=== PATIENT | female | born 1970 | race African-American/Black ===

== ENCOUNTER 2019-09-03 21:59 | Emergency (ER) | payer MEDICAID, OTHER ==
[~2019-09-03] VITALS: Ht 172.7 cm; Wt 62.1 kg
[~2019-09-03 21:59] MED LIST: ATIVAN0.5 MG ORAL; OMEPRAZOLE20 M2 ORAL; PEPCID40 MG PO; ZOFRAN ODT4 MG ORAL
[2019-09-03 22:10] VITALS: BP 96/78
[2019-09-03] MEDS ORDERED: Metoclopramide 10mg/2ml Inj IVP ONE (22:15)
[2019-09-03] MEDS ORDERED: HYDROmorphone 1mg/ml Carpuject IVP ONE (22:15)
[2019-09-03] MEDS ORDERED: Omnipaque-300 100ml vial INJ PRN (22:15)
[2019-09-03] MEDS ORDERED: DiphenhydrAMINE 25mg Tab ORAL ONE (22:15)
[2019-09-03 22:59] LABS: BASOPHILS % (AUTO) 0.9 % (0.0-2.0); HEMATOCRIT 46.5 % (37.0-47.0); HEMOGLOBIN 14.6 G/DL (12.0-16.0); LYMPHOCYTES % (AUTO) 19.1 % (20.0-45.0); MEAN CORPUSCULAR VOLUME 98 FL (80-99); MONOCYTES % (AUTO) 5.1 % (1.0-10.0); NEUTROPHILS % (AUTO) 74.9 % (45.0-75.0); PLATELET COUNT 281 K/UL (150-450); RED BLOOD COUNT 4.73 M/UL (4.20-5.40); RED CELL DISTRIBUTION WIDTH 16.2 % (11.6-14.8)
[2019-09-03 23:11] LABS: INR 0.9 (0.9-1.1)
[2019-09-03 23:19] LABS: ALANINE AMINOTRANSFERASE 25 U/L (12-78); ALBUMIN 4.3 G/DL (3.4-5.0); ALKALINE PHOSPHATASE 96 U/L (46-116); ANION GAP 17 mmol/L (5-15); ASPARTATE AMINO TRANSFERASE 68 U/L (15-37); BILIRUBIN,TOTAL 0.9 MG/DL (0.2-1.0); BLOOD UREA NITROGEN 18 mg/dL (7-18); CARBON DIOXIDE 27 MMOL/L (21-32); CHLORIDE 100 MMOL/L (98-107); CREATININE 1.3 MG/DL (0.55-1.30); POTASSIUM 4.5 MMOL/L (3.5-5.1); SODIUM 144 MMOL/L (136-145)
--- NOTE | 2019-09-03 23:21 | Emergency Room Report ---
History of Present Illness General Chief Complaint: Abdominal Pain Source: Patient, EMS Present Illness HPI 49-year-old female history of gastritis presents with abdominal pain x3 days constant patient reports another bout of gastritis patient was seen at previous hospitals, states that she needs hydromorphone to help her pain, severity is severe, constant she denies any chest pain shortness of breath she denies any diarrhea she reports some nausea patient presents for evaluation. She describes the pain as generalized sharp severe Allergies: Coded Allergies: KETOROLAC (Unverified Allergy, Unknown, 05/25/14) PENICILLINS (Unverified Allergy, Unknown, 05/25/14) Patient History Past Medical History: see triage record Last Menstrual Period: 08/19/2019 Reviewed Nursing Documentation: PMH: Agreed; PSxH: Agreed Nursing Documentation-PMH Hx Cardiac Problems: Yes - ANGINA Hx Hypertension: Yes Hx Asthma: Yes Hx Gastrointestinal Problems: Yes - GASTRITIS, DIVERTICULITIS, SICKLE CELL Review of Systems All Other Systems: negative except mentioned in HPI Physical Exam Vital Signs Date Time Temp Pulse Resp B/P (MAP) Pulse Ox O2 Delivery O2 Flow Rate FiO2 09/03/19 22:03 98.4 115 22 96/78 (84) 97 Room Air Sp02 EP Interpretation: reviewed, normal General Appearance: well appearing, alert, mild distress Head: normocephalic, atraumatic Eyes: bilateral eye PERRL, bilateral eye EOMI ENT: uvula midline, moist mucus membranes Neck: supple, thyroid normal, supple/symm/no masses Respiratory: lungs clear, no respiratory distress, no retraction, no accessory muscle use Cardiovascular #1: normal peripheral pulses, regular rate, rhythm, no edema, no gallop, no murmur Gastrointestinal: non tender, soft, no guarding, no rebound Musculoskeletal: normal inspection Neurologic: alert, oriented x3 Psychiatric: anxious Skin: no rash, warm/dry Medical Decision Making Diagnostic Impression: Primary Impression: Abdominal pain Qualified Codes: R10.84 - Generalized abdominal pain ER Course 49-year-old female presents with diffuse abdominal pain patient is a frequent flyer receiving pain medications patient is requesting strong pain medications Patient's pain resolved with hydromorphone and famotidine abdomen soft nontender no rebound no guarding There is a possible colitis on CT scan however it is incongruent with her current exam low suspicion for acute intra-abdominal pathology Reevaluation 1:49 AM patient is sleeping comfortably in bed will provide patient with a short-term prescription of pain medication cures report was run Disposition home with return precautions follow-up with PCP Laboratory Tests Test 09/03/19 22:45 White Blood Count 10.0 K/UL (4.8-10.8) Red Blood Count 4.73 M/UL (4.20-5.40) Hemoglobin 14.6 G/DL (12.0-16.0) Hematocrit 46.5 % (37.0-47.0) Mean Corpuscular Volume 98 FL (80-99) Mean Corpuscular Hemoglobin 31.0 PG (27.0-31.0) Mean Corpuscular Hemoglobin Concent 31.5 G/DL (32.0-36.0) L Red Cell Distribution Width 16.2 % (11.6-14.8) H Platelet Count 281 K/UL (150-450) Mean Platelet Volume 7.1 FL (6.5-10.1) Neutrophils (%) (Auto) 74.9 % (45.0-75.0) Lymphocytes (%) (Auto) 19.1 % (20.0-45.0) L Monocytes (%) (Auto) 5.1 % (1.0-10.0) Eosinophils (%) (Auto) 0.0 % (0.0-3.0) Basophils (%) (Auto) 0.9 % (0.0-2.0) Prothrombin Time 10.0 SEC (9.30-11.50) Prothrombin Time INR 0.9 (0.9-1.1) Activated Partial Thromboplast Time 24 SEC (23-33) Sodium Level 144 MMOL/L (136-145) Potassium Level 4.5 MMOL/L (3.5-5.1) Chloride Level 100 MMOL/L (98-107) Carbon Dioxide Level 27 MMOL/L (21-32) Anion Gap 17 mmol/L (5-15) H Blood Urea Nitrogen 18 mg/dL (7-18) Creatinine 1.3 MG/DL (0.55-1.30) Estimate Glomerular Filtration Rate 53.2 mL/min (>60) Glucose Level 119 MG/DL (74-106) H Calcium Level 10.0 MG/DL (8.5-10.1) Total Bilirubin 0.9 MG/DL (0.2-1.0) Aspartate Amino Transferase (AST) 68 U/L (15-37) H Alanine Aminotransferase (ALT) 25 U/L (12-78) Alkaline Phosphatase 96 U/L (46-116) Troponin I 0.022 ng/mL (0.000-0.056) Total Protein 8.8 G/DL (6.4-8.2) H Albumin 4.3 G/DL (3.4-5.0) Globulin 4.5 g/dL Albumin/Globulin Ratio 1.0 (1.0-2.7) Lipase 84 U/L (73-393) Human Chorionic Gonadotropin, Quant 1 mIU/mL (1-6) EKG Diagnostic Results EKG Time: 22:19 EP Interpretation: Sinus tachycardia, rate 102, QTc 487, normal axis, no acute ST elevations Rhythm Strip Diag. Results Rhythm Strip Time: 23:21 EP Interpretation: yes Rate: 96 Rhythm: NSR, no PVC's, no ectopy CT/MRI/US Diagnostic Results CT/MRI/US Diagnostic Results : Impression Preliminary Findings Only See Final Report For Complete Findings CT ABDOMEN & PELVIS With Contrast: No prior exam. Clear lungs. Normal size of the heart. Ill-defined low-attenuation lesion within the left liver lobe measuring 2.2 x 2.0 cm, incompletely characterized. Normal bilateral kidneys, visualized spleen. Possible minimal stranding surrounding the pancreas, cannot exclude pancreatitis. Decompressed stomach. Unremarkable small bowel with fluid in the distal small bowel. Mild diverticulosis with no signs of diverticulitis. Normal appendix. Mild fullness of the colon, cannot exclude colitis. Unremarkable urinary bladder. Unremarkable uterus but no free fluid. Degenerative disease of the spine most severe at L5-S1. Impression: Possible colitis. Clinical correlation recommended. No bowel obstruction. No acute appendicitis. Mild diverticulosis with no signs of diverticulitis or Left liver lobe lesion, incompletely characterized and therefore indeterminate to benign versus malignant. Comparison to prior films recommended. If no prior films are made available, further characterization with CT of the abdomen, liver mass protocol recommended a nonacute setting. Radiologist: Kathleen Land MD Study ready at 01:14 and initial results transmitted at 01:44 Last Vital Signs Date Time Temp Pulse Resp B/P (MAP) Pulse Ox O2 Delivery O2 Flow Rate FiO2 09/03/19 22:10 115 22 Room Air 09/03/19 22:10 98.4 96/78 97 Disposition: HOME, SELF-CARE Condition: Stable Scripts Oxycodone HCl (Oxycodone HCl) 15 Mg Tablet 15 MG ORAL Q4H PRN for For Pain, #12 TAB 0 Refills Prov: Jose D Mcdermott MD 09/04/19 Referrals: [facility] (PCP) Patient Instructions: Abdominal Pain, Adult Additional Instructions: The patient was provided with discharge instructions, notified to follow-up with a primary care doctor and or specialist in the next 24-48 hours, and to return to the ED if they have worsening of their symptoms. Please note that this report is being documented using [employer] technology. This can lead to erroneous entry secondary to incorrect interpretation by the dictating instrument. Jose D Mcdermott MD Sep 03, 2019 23:21
--- NOTE | 2019-09-04 01:45 | Diagnostic Imaging Report ---
INDICATION: Abdominal pain TECHNIQUE: Continuous helical transaxial imaging of the abdomen and pelvis was obtained from the lung bases to the pubic symphysis during intravenous contrast administration. Coronal 2-D reformats were also obtained. Study obtained in a Siemens sensation [address] Automatic Exposure Control was utilized. Total Dose length Product (DLP): 182.[address] Dose Index Volume (CTDIvol): 3.9 mGy COMPARISON: None FINDINGS: Lungs: The visualized lung bases are clear. Liver: There is approximately 2 cm ill-defined hypodensity in the lateral segment of the left lobe of the liver. This requires further evaluation. Gallbladder/biliary system: No gallstones are identified. There is no evidence of intrahepatic or extrahepatic biliary ductal dilatation. Spleen: Unremarkable Pancreas: Unremarkable Kidneys/Bladder: No hydronephrosis identified. Both kidneys enhance symmetrically. The urinary bladder is unremarkable.. Adrenal glands: Unremarkable Aorta/IVC: Unremarkable Bowel: The colon is diffusely underdistended with slight prominence of the wall. This is questionable for colitis. Correlate clinically. There is no evidence of bowel obstruction. Peritoneum: There is no free fluid. There is a small ventral abdominal wall hernia above the umbilicus. This contains fat.. Bones: Degenerative disc disease at L5-S1 noted with vacuum phenomenon narrowing. IMPRESSION: Question of a colitis versus under distention of the colon. Consider further evaluation. 2 cm hypodensity in the left lobe of the liver requires further evaluation. Recommend contrast CT or ultrasound. Other incidental findings as above The study is significantly limited by the nonadministration of oral and IV contrast. [facility] has communicated the preliminary results to the Emergency Department. Their findings are largely concordant with this report. The CT scanner at [facility] is accredited by the [employer] and the scans are performed using dose optimization techniques as appropriate to a performed exam including Automatic Exposure control.
[2019-09-04] MEDS ORDERED: OXYCODONE IR15 MG ORAL (01:51)
[2019-09-04 02:15] VITALS: BP 96/78
== END 2019-09-04 02:15 | disposition home or self-care (01) ==
LOC: EDBD 21:59 → EMR 22:12
DX: R10.84 Generalized abdominal pain (principal); I10 Essential (primary) hypertension; Z88.0 Allergy status to penicillin; Z88.8 Allergy status to other drugs, medicaments and biological substances
CPT/HCPCS: 36415; 74177; 80053; 83690; 84484; 84702; 85025; 85610; 85730; 93005; 96361; 96374; 96375; J1170; J2765; J7030; Q9967; S0028; Z7502; 99284

== ENCOUNTER 2020-06-02 21:40 | Emergency (ER) | payer MEDICAID ==
[~2020-06-02] VITALS: Ht 149.9 cm; Wt 62.1 kg
[~2020-06-02 21:40] MED LIST changes: +OXYCODONE IR15 MG ORAL
[2020-06-02] MEDS ORDERED: Lidocaine 2% Visc 15ml soln ORAL ONE (22:15)
[2020-06-02] MEDS ORDERED: Dicyclomine HCl 10mg/5ml oral soln ORAL ONE (22:15)
[2020-06-02] MEDS ORDERED: HYDROmorphone 1mg/ml Carpuject IVP ONE ×2 (22:15→23:00)
[2020-06-02] MEDS ORDERED: Mylanta II UD 30ml ORAL ONE (22:15)
--- NOTE | 2020-06-02 22:17 | Emergency Room Report ---
History of Present Illness General Chief Complaint: Abdominal Pain Present Illness HPI 50-year-old female with history of sickle cell anemia and hydroxyurea here with epigastric abdominal pain. Patient says that over the past 72 hours she has been having worsening epigastric abdominal pain that is worse today. She started vomiting yesterday and reports one episode of coffee-ground emesis. However her vomit today did not show any signs of blood. Says she is also had some black stool. Pain is sharp in nature, located epigastric region, does not otherwise radiate. Reports 10 out of 10 in intensity. Says "I was taking hydrocodone but ran out." Denies headache, vision change, fevers, chills, chest pain, palpitations, shortness of breath, back pain, diarrhea, dysuria. Review of cures report shows that the patient was given a prescription for 90 oxycodone tablets 2 weeks ago. 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 Patient History Now: No Nursing Documentation-PMH Hx Cardiac Problems: Yes - ANGINA Hx Hypertension: Yes Hx Asthma: Yes Hx Gastrointestinal Problems: Yes - GASTRITIS, DIVERTICULITIS, SICKLE CELL Review of Systems All Other Systems: negative except mentioned in HPI Physical Exam Vital Signs Date Time Temp Pulse Resp B/P (MAP) Pulse Ox O2 Delivery O2 Flow Rate FiO2 06/02/20 21:48 99.1 88 26 148/88 (108) 88 Room Air Sp02 EP Interpretation: reviewed, normal General Appearance: alert, non-toxic, moderate distress Head: normocephalic, atraumatic Eyes: bilateral eye normal inspection, bilateral eye PERRL ENT: hearing grossly normal, normal pharynx, no angioedema, normal voice Neck: full range of motion, supple/symm/no masses Respiratory: chest non-tender, lungs clear, normal breath sounds, speaking full sentences Cardiovascular #1: regular rate, rhythm, no edema Cardiovascular #2: 2+ carotid (R), 2+ carotid (L), 2+ radial (R), 2+ radial (L), 2+ dorsalis pedis (R), 2+ dorsalis pedis (L) Gastrointestinal: normal bowel sounds, soft, non-distended, no guarding, no rebound, other - Epigastric tenderness on palpation. No rebound or guarding Rectal: deferred Genitourinary: normal inspection, no CVA tenderness Musculoskeletal: back normal, normal range of motion, gait/station normal, non- tender Neurologic: alert, motor strength/tone normal, sensory intact, responsive, speech normal Psychiatric: judgement/insight normal, memory normal, mood/affect normal, no suicidal/homicidal ideation Reflexes: 3+ bicep (R), 3+ bicep (L), 3+ tricep (R), 3+ tricep (L), 3+ knee (R), 3+ knee (L) Lymphatic: no adenopathy Medical Decision Making Diagnostic Impression: Primary Impression: Opiate dependence Additional Impressions: Abdominal pain Acute sickle cell crisis ER Course Laboratory Tests Laboratory Tests Test 06/02/20 22:00 06/03/20 00:00 White Blood Count 8.4 K/UL (4.8-10.8) Red Blood Count 4.75 M/UL (4.20-5.40) Hemoglobin 16.3 G/DL (12.0-16.0) H Hematocrit 50.1 % (37.0-47.0) H Mean Corpuscular Volume 106 FL (80-99) H Mean Corpuscular Hemoglobin 34.3 PG (27.0-31.0) H Mean Corpuscular Hemoglobin Concent 32.6 G/DL (32.0-36.0) Red Cell Distribution Width 15.8 % (11.6-14.8) H Platelet Count 169 K/UL (150-450) Mean Platelet Volume 8.3 FL (6.5-10.1) Neutrophils (%) (Auto) 84.5 % (45.0-75.0) H Lymphocytes (%) (Auto) 10.6 % (20.0-45.0) L Monocytes (%) (Auto) 4.1 % (1.0-10.0) Eosinophils (%) (Auto) 0.1 % (0.0-3.0) Basophils (%) (Auto) 0.7 % (0.0-2.0) Reticulocyte Count 0.6 % (0.5-2.0) Sodium Level 143 MMOL/L (136-145) Potassium Level 5.7 MMOL/L (3.5-5.1) H Chloride Level 106 MMOL/L (98-107) Carbon Dioxide Level 29 MMOL/L (21-32) Anion Gap 9 mmol/L (5-15) Blood Urea Nitrogen 13 mg/dL (7-18) Creatinine 0.9 MG/DL (0.55-1.30) Estimated Glomerular Filtration Rate > 60 mL/min (>60) Glucose Level 118 MG/DL (74-106) H Calcium Level 9.6 MG/DL (8.5-10.1) Total Bilirubin 0.9 MG/DL (0.2-1.0) Aspartate Amino Transferase (AST) 45 U/L (15-37) H Alanine Aminotransferase (ALT) 22 U/L (12-78) Alkaline Phosphatase 93 U/L (46-116) Total Protein 8.7 G/DL (6.4-8.2) H Albumin 4.3 G/DL (3.4-5.0) Globulin 4.4 g/dL Albumin/Globulin Ratio 1.0 (1.0-2.7) Lipase 60 U/L (73-393) L Urine Color Yellow Urine Appearance Clear Urine pH 5 (4.5-8.0) Urine Specific Stitzer 1.020 (1.005-1.035) Urine Protein 1+ (NEGATIVE) H Urine Glucose (UA) Negative (NEGATIVE) Urine Ketones 2+ (NEGATIVE) H Urine Blood 1+ (NEGATIVE) H Urine Nitrite Negative (NEGATIVE) Urine Bilirubin Negative (NEGATIVE) Urine Urobilinogen Normal MG/DL (0.0-1.0) Urine Leukocyte Esterase Negative (NEGATIVE) Urine RBC 0-2 /HPF (0 - 2) Urine WBC 0-2 /HPF (0 - 2) Urine Squamous Epithelial Cells Few /LPF (NONE/OCC) Urine Bacteria Few /HPF (NONE) Chest x-ray: No infiltrate/effusion. Mediastinum within normal limits. No consolidation. No free air under the diaphragm CT abd pel: IMPRESSION: 1. Mildly thickened large bowel loops throughout the abdomen. Correlate with colitis versus under distention. 2. Mild hiatal hernia. 3. Hemangioma in the left liver. 4. 1.3 cm exophytic lesion arising from the anterior uterus, likely subserosal fibroid. 50-year-old female with history of sickle cell anemia here with abdominal pain. Patient was screaming in pain when she arrived to the emergency department. She had moderate epigastric tenderness on palpation. She was given 2 g of Dilaudid, Benadryl, Ativan, IV fluids with good resolution of her pain. She was sleeping soundly after these medications were given. CT abdomen unremarkable. Chest x- ray was also normal. She was in no acute distress throughout the rest of her s kasey in the emergency department. Normal vital signs. CBC, CMP, troponin all unremarkable. She had a normal reticulocyte count. Review of patient's cures showed that she was given 90 oxycodone tablets approximately 2 weeks ago. She was told that she needs to follow-up with her pain specialist. Urinalysis unremarkable. Patient was given a prescription for short course of opiate pain medication. Discharged in stable condition. Last Vital Signs Date Time Temp Pulse Resp B/P (MAP) Pulse Ox O2 Delivery O2 Flow Rate FiO2 06/02/20 21:48 99.1 88 26 148/88 (108) 88 Room Air Scripts Hydrocodone Bit/Acetaminophen 5-325* (NORCO 5-325 TABLET*) 1 Each Tablet 1 TAB ORAL Q4H PRN for For Pain, #10 TAB Prov: Tito Saravia M.D. 06/03/20 Referrals: [facility] (PCP) Tito Saravia M.D. Jun 02, 2020 22:17
[2020-06-02 22:31] LABS: ANION GAP 9 mmol/L (5-15); BLOOD UREA NITROGEN 13 mg/dL (7-18); CALCIUM 9.6 MG/DL (8.5-10.1); CARBON DIOXIDE 29 MMOL/L (21-32); CHLORIDE 106 MMOL/L (98-107); CREATININE 0.9 MG/DL (0.55-1.30); POTASSIUM 5.7 MMOL/L (3.5-5.1); SODIUM 143 MMOL/L (136-145)
[2020-06-02 22:35] LABS: ALANINE AMINOTRANSFERASE 22 U/L (12-78); ALBUMIN 4.3 G/DL (3.4-5.0); ALKALINE PHOSPHATASE 93 U/L (46-116); ASPARTATE AMINO TRANSFERASE 45 U/L (15-37); BILIRUBIN,TOTAL 0.9 MG/DL (0.2-1.0)
[2020-06-02 22:41] LABS: BASOPHILS % (AUTO) 0.7 % (0.0-2.0); EOSINOPHILS % (AUTO) 0.1 % (0.0-3.0); HEMATOCRIT 50.1 % (37.0-47.0); HEMOGLOBIN 16.3 G/DL (12.0-16.0); LYMPHOCYTES % (AUTO) 10.6 % (20.0-45.0); MEAN CORPUSCULAR VOLUME 106 FL (80-99); MONOCYTES % (AUTO) 4.1 % (1.0-10.0); NEUTROPHILS % (AUTO) 84.5 % (45.0-75.0); PLATELET COUNT 169 K/UL (150-450); RED BLOOD COUNT 4.75 M/UL (4.20-5.40); RED CELL DISTRIBUTION WIDTH 15.8 % (11.6-14.8); WHITE BLOOD COUNT 8.4 K/UL (4.8-10.8)
[2020-06-02] MEDS ORDERED: Omnipaque-300 100ml vial INJ PRN (22:45)
[2020-06-02] MEDS ORDERED: Haloperidol 5mg/ml Inj IM ONE (22:45)
[2020-06-02] MEDS ORDERED: LORazepam Inj 2mg/ml 1ml IV ONE (23:00)
[2020-06-02] MEDS ORDERED: DiphenhydrAMINE 50mg/ml Inj IVP ONE (23:00)
[2020-06-03] VITALS: BP 138/78
--- NOTE | 2020-06-03 00:31 | Diagnostic Imaging Report ---
EXAM: CT Abdomen and Pelvis With Intravenous Contrast CLINICAL HISTORY: PAIN TECHNIQUE: Axial computed tomography images of the abdomen and pelvis with intravenous contrast. CTDI is 3.80 mGy and DLP is 171.50 mGy-cm. One or more of the following dose reduction techniques were used: automated exposure control, adjustment of the mA and/or kV according to patient size, use of iterative reconstruction technique. COMPARISON: 09/04/2019 FINDINGS: Lung bases: No mass. No consolidation. ABDOMEN: Liver: Peripherally enhancing 2 cm low-density lesion in the left liver is likely hemangioma. Gallbladder and bile ducts: Unremarkable. Pancreas: Unremarkable. Spleen: Unremarkable. Adrenals: Unremarkable. Kidneys and ureters: No hydronephrosis. Stomach and bowel: No bowel obstruction. Mildly thickened large bowel loops. Mild hiatal hernia. PELVIS: Appendix: No evidence of appendicitis. Bladder: Unremarkable. Reproductive: 1.3 cm exophytic lesion arising from the anterior uterus. ABDOMEN and PELVIS: Intraperitoneal space: Unremarkable. Bones/joints: No acute fractures. Severe disc height loss and sclerotic changes at L5-S1 Soft tissues: Unremarkable. Vasculature: No abdominal aortic aneurysm. Lymph nodes: No enlarged lymph nodes. IMPRESSION: 1. Mildly thickened large bowel loops throughout the abdomen. Correlate with colitis versus under distention. 2. Mild hiatal hernia. 3. Hemangioma in the left liver. 4. 1.3 cm exophytic lesion arising from the anterior uterus, likely subserosal fibroid.
[2020-06-03 00:50] LABS: APPEARANCE,URINE CLEAR; BILIRUBIN, URINE NEGATIVE (NEGATIVE); GLUCOSE, URINE (UA) NEGATIVE (NEGATIVE); KETONES,URINE 2+ (NEGATIVE); LEUKOCYTE ESTERASE ,URINE NEGATIVE (NEGATIVE); NITRITE,URINE NEGATIVE (NEGATIVE); PH,URINE 5 (4.5-8.0); PROTEIN,URINE 1+ (NEGATIVE); UROBILINOGEN,URINE NORMAL MG/DL (0.0-1.0)
[2020-06-03 00:56] LABS: COLOR,URINE YELLOW
[2020-06-03] MEDS ORDERED: NORCO 5-325 TA1 EAC1 ORAL (00:56)
[2020-06-03] MEDS ORDERED: OXYCODONE HCL10 MG ORAL (01:55)
[2020-06-03] MEDS ORDERED: HYDROmorphone 1mg/ml Carpuject IVP ONE (02:00)
[2020-06-03 02:13] VITALS: BP 128/68
--- NOTE | 2020-06-03 14:54 | Diagnostic Imaging Report ---
Indication: Chest pain Technique: One view of the chest Comparison: 05/25/2014 Findings: Lungs and pleural spaces are clear. Heart size is normal. No significant change Impression: No acute process
== END 2020-06-03 02:30 | disposition home or self-care (01) ==
LOC: EMR 22:00
DX: F11.20 Opioid dependence, uncomplicated (principal); R10.9 Unspecified abdominal pain; D57.00 Hb-SS disease with crisis, unspecified; I10 Essential (primary) hypertension; J45.909 Unspecified asthma, uncomplicated; Z88.0 Allergy status to penicillin; Z88.8 Allergy status to other drugs, medicaments and biological substances; Z87.19 Personal history of other diseases of the digestive system
CPT/HCPCS: 36415; 71045; 74177; 80053; 81003; 83690; 85025; 85044; 96361; 96374; 96375; 96376; J1170; J1200; J2405; J7030; Q9965; Z7502; 99284